=== PATIENT | female | born 1995 | race Caucasian/White ===

== ENCOUNTER 2018-02-22 13:51 | Inpatient (IN) | payer OTHER ==
[~2018-02-22] VITALS: Ht 170.2 cm; Wt 105.2 kg
--- NOTE | 2018-02-22 13:25 | NUR ---
RECEIVED REPORT FROM NEISHA BYNUM PT IS ON WAY TO [facility]. Addendum: 02/22/18 at 1502 by Jia Ly Meng, RN DAKOTA PALACIOS
[2018-02-22 13:40] VITALS: BP 120/71
--- NOTE | 2018-02-22 13:40 | NUR ---
ADMITTED PT TO THE UNIT. AMBULATORY WITHOUT ASSIST. SKIN INTACT. LUNGS CTA. HEART RHYTHM REGULAR. C/O TOLERABLE 5/10 RUQ PAIN RADIATING TO EPIGASTRIUM. DENIES NEED FOR PAIN MEDICATION AT THIS TIME. WILL CALL DR. YUSUF FOR ADMIT ORDERS. DENIES PMHX. DENIES ALLERGIES TO MEDICATION AND FOOD. IN STABLE CONDITION. VITALS STABLE. ALL SAFETY PRECAUTIONS IN PLACE, WILL CONTINUE TO MONITOR.
--- NOTE | 2018-02-22 14:08 | NUR ---
PAGED DR. YUSUF FOR ADMIT ORDERS AND PAIN MEDICATION ORDERS. PER DR. YUSUF, HE WILL ENTER IN THE ORDERS. NOTIFIED DR. YUSUF THAT DR. DANIEL IS HERE AND AVAILABLE FOR SURGICAL CONSULT.
[2018-02-22] MEDS ORDERED: ACETAMINOPHEN 325 MG TAB PO PRN (14:10)
[2018-02-22] MEDS ORDERED: ONDANSETRON 4 MG/2 ML VIAL IVP PRN (14:10)
[2018-02-22] MEDS ORDERED: MORPHINE SULFATE 4 MG/ML SYR IVP PRN (14:10)
[2018-02-22] MEDS ORDERED: HYDROcodone/APAP 5/325 MG 1 TAB TAB PO PRN (14:10)
[2018-02-22] MEDS: DEXT 5% / NACL 0.45% 1,000 ML IV SCH (14:20)
[2018-02-22 16:00] VITALS: BP 109/68
--- NOTE | 2018-02-22 16:04 | NUR ---
PT RESTING COMFORTABLY IN BED. STILL C/O 06/22 RUQ PAIN BUT REFUSED PAIN MEDICATION. Addendum: 02/22/18 at 1605 by Jia Ly Meng, RN STATES PAIN TOLERABLE.
--- NOTE | 2018-02-22 18:14 | NUR ---
PER DR. DANIEL, HE WANTS PT TO HAVE MRI ABD W/WO CONTRAST.
--- NOTE | 2018-02-22 18:26 | NUR ---
PT LEFT FOR CT ABDOMEN.
--- NOTE | 2018-02-22 19:25 | NUR ---
ENDORSED POC TO DESKTOP ANALYST RN. PT IN STABLE CONDITION. ENDORSED TO OBTAIN CONSENT FOR ERCP, AND CALL DR. HEWITT WHEN LAB RESULTS BACK.
--- NOTE | 2018-02-22 19:26 | NUR ---
RECD. RESTING IN BED, AWAKE, A/OX4. CONVERSING WITH SOMEBODY IN HER CELL PHONE. RESPIRATION EVEN AND UNLABORED. IV OF D51/2 NS AT 100 ML/HR INFUSING. PLAN OF CARE FOR THE SHIFT DISCUSSED. DENIES ABDOMINAL PAIN 0/10. WILL FOLLOW UP WITH LAB RESULTS.
--- NOTE | 2018-02-22 19:26 | NUR ---
Patient's Plan of Care was discussed and reviewed with SHERITA: MARTÍN
[2018-02-22 20:00] VITALS: BP 108/62
[2018-02-22 20:01] LABS: TOTAL BILIRUBIN 1.8 mg/dL (0.0-1.0)
[2018-02-22 20:02] LABS: ALBUMIN 3.4 g/dL (3.4-5.0); BILIRUBIN,DIRECT 0.5 mg/dL (0.0-0.3)
--- NOTE | 2018-02-22 21:00 | NUR ---
DR. DUMAS CALLED, INFORMED REGARDING HEPATIC PANEL RESULT, AND CT OF ABD/PELVIS. WILL NOT DO ERCP TOMORROW. PT WILL STILL BE NPO. INFORMED CHARGE NURSE FAIRY AND PATIENT REGARDING DR. DUMAS'S DECISION.
[2018-02-23] VITALS: BP 103/66
[2018-02-23] MEDS: DEXT 5% / NACL 0.45% 1,000 ML IV SCH ×3 (00:18→20:08)
[2018-02-23 06:02] LABS: BASOPHILS % (AUTO) 0.2 % (0.0-2.0); EOSINOPHILS # (AUTO) 0.2 K/uL (0-0.4); HEMATOCRIT 38.1 % (36-48); HEMOGLOBIN 12.6 g/dL (12.0-16.0); LYMPHOCYTES # (AUTO) 1.9 K/uL (2.5-16.5); LYMPHOCYTES % (AUTO) 23.5 % (20.5-51.1); MEAN CORPUSCULAR HEMOGLOBIN 29 pg (27-31); MEAN CORPUSCULAR HGB CONC 33 g/dL (33-37); MEAN CORPUSCULAR VOLUME 88.1 fL (80-94); MONOCYTES # (AUTO) 0.5 K/uL (0.8-1.0); MONOCYTES % (AUTO) 5.6 % (1.7-9.3); NEUTROPHILS # (AUTO) 5.7 K/uL (1.8-7.7); NEUTROPHILS % (AUTO) 68.7 % (42.2-75.2); PLATELET COUNT (AUTO) 181 K/uL (140-450); RED BLOOD CELL COUNT(AUTO) 4.33 MIL/uL (4.20-5.40); RED CELL DISTRIBUTION WIDTH 12.9 % (11.6-13.7); WHITE BLOOD COUNT (AUTO) 8.2 K/uL (4.8-10.8)
[2018-02-23 06:57] LABS: PROTHROMBIN TIME 10.8 secs (10.8-13.4)
[2018-02-23 07:15] LABS: ANION GAP 9.8 (8-16); CARBON DIOXIDE 29.9 mmol/L (21-32); CREATININE 0.9 mg/dL (0.6-1.3); POTASSIUM 3.7 mmol/L (3.5-5.1)
--- NOTE | 2018-02-23 07:25 | NUR ---
RECEIVED REPORT FROM AIDS COUNSELOR NURSE. PATIENT LYING DOWN IN BED SLEEPING, AROUSABLE BY VOICE. NO DISTRESS NOTED. DENIES ANY PAIN AT THIS TIME. DENIES ANY PAIN THROUGHOUT NIGHT. NO NAUSEA/VOMITING THROUGHOUT NIGHT. AAOX4, CALM, COOPERATIVE, SKIN COLOR APPROPRIATE TO ETHNICITY, WARM TO TOUCH. SKIN IS INTACT. ABDOMEN SOFT. IV SITE INTACT PATENT AND INFUSING IVF PER MD ORDERS. SAFETY MEASURES IN PLACE, CALL LIGHT WITHIN REACH. WILL CONTINUE TO MONITOR.
[2018-02-23 07:32] LABS: HEPATITIS A ANTIBODY IGM Negative (Negative); HEPATITIS B CORE AB TOTAL Negative (Negative); HEPATITIS B SURFACE ANTIBODY Reactive (.); HEPATITIS B SURFACE ANTIGEN Negative (Negative)
[2018-02-23 07:57] LABS: TOTAL BILIRUBIN 1.2 mg/dL (0.0-1.0)
[2018-02-23 08:00] VITALS: BP 113/68
[2018-02-23 08:00] LABS: ALBUMIN 3.2 g/dL (3.4-5.0)
--- NOTE | 2018-02-23 08:40 | NUR ---
PATIENT HAS BEEN SCREENED AND CATEGORIZED HIGH NUTRITION RISK. PATIENT WILL BE SEEN WITHIN 1-2 DAYS OF ADMISSION. 02/23/18-02/24/[address]
[2018-02-23] MEDS: PANTOPRAZOLE 40 MG INJ VIAL IVP SCH (09:50)
--- NOTE | 2018-02-23 09:54 | NUR ---
PATIENT SITTING IN BED TALKING WITH FAMILY MEMBERS AT BEDSIDE. NO DISTRESS NOTED. DENIES ANY PAIN. SCHEDULED MEDICATIONS DUE GIVEN. WILL CONTINUE TO MONITOR.
--- NOTE | 2018-02-23 10:44 | NUR ---
SPOKE WITH DR DANIEL UPDATED PATIENT STATUS AND NO NEED ERCP FROM DR HEWITT ,DR DANIEL SAID CANCELLED MRI PT CAN GO HOME AND FOLLOW UP WITH HIM WITH IN ONE WEEK. NOTIFIED DR YUSUF WELL.
--- NOTE | 2018-02-23 14:29 | NUR ---
02/23/18 RD INITIAL ASSESSMENT COMPLETED PLEASE REFER TO NUTRITION ASSESSMENT UNDER CARE ACTIVITY FOR ESTIMATED NUTRITIONAL NEEDS. 1. CONTINUE NPO MEDICALLY NECESSARY 2. IF/WHEN PATIENT IS MEDICALLY STABLE CONSIDER ADVANCING TO BLAND DIET, TOLERATED 3. RD PROVIDED NUTRITION EDUCATION ON GENERAL HEALTHY EATING. PT ACCEPTED 4. RD TO FOLLOW-UP 5-7 DAYS, LOW RISK JON DOSS RD
[2018-02-23 16:00] VITALS: BP 121/72
[2018-02-23] MEDS ORDERED: ENOXAPARIN 40 MG/0.4 ML SYR SUBQ SCH (17:00)
--- NOTE | 2018-02-23 17:34 | NUR ---
PATIENT SITTING IN BED TALKING WITH FAMILY MEMBERS AT BEDSIDE. DENIES ANY PAIN. SCHEDULED MEDICATIONS DUE GIVEN. WILL CONTINUE TO MONITOR.
[2018-02-23] MEDS: PIPER/TAZO 3.375GM/D5W PREMIX 50 ML IV SCH ×2 (17:52→23:53)
--- NOTE | 2018-02-23 19:30 | NUR ---
RECEIVED REPORT FROM DANIE DUNCAN DAYSHIFT NURSE AT BEDSIDE FOR CONTINUITY OF CARE, PT IN STABLE CONDITION. MOTHER AT BEDSIDE.
--- NOTE | 2018-02-23 20:00 | NUR ---
PT LYING IN BED NO C/O OF PAIN OR DISTRESS, V/S FOLLOWS T 97.3 P 70 R 18 B/P 143/67 02 95% ON R/A.
--- NOTE | 2018-02-23 22:00 | NUR ---
PT IN BED, RESTING, NO S/S OF PAIN OR DISTRESS NOTED. D5 AND 1/2 NS RUNNING AT 100MLS/HR. IV SITE ON LEFT HAND 22G INTACT, ASYMPTOMATIC AND FLUSHED PATENT. WILL CONTINUE TO MONITOR PT FOR PAIN AND ANY OTHER REQUEST. PT SAID THAT SHE WANTED TO TAKE A NAP. BED LOW AND CALL COLLINS IN REACH.
[2018-02-24] VITALS: BP 103/48
--- NOTE | 2018-02-24 | NUR ---
PT IN BED RESTING, BUT AROUSABLE TO NAME. MELI MADDEN ORDERED. MEDICATION AND DIET EDUCATION PROVIDED TO PT. PT DENIES PAIN AT THIS TIME. V/S FOLLOWS: T 98.0 P 72 R 18 B/P 103/48 02 97% ON R/A.BED IN LOW POSITION WITH SIDE RAILS UP X2 AND CALL COLLINS IN REACH.
--- NOTE | 2018-02-24 02:05 | NUR ---
PT SLEEPING SOUNDLY NO S/S OF PAIN OR DISTRESS NOTED. D5AND 1/2 NS RUNNING AT 100. IV SITE INTACT AND FLUSHED PATENET. BED LOW SIDE RAILS UP X2 AND CALL COLLINS IN REACH.
--- NOTE | 2018-02-24 04:26 | NUR ---
PT CONTINUE TO SLEEP SOUNDLY NO S/S OF PAIN OR DISTRESS NOTED BED LOW SIDE RAILS UP X2 AND CALL COLLINS IN REACH. PT FLUIDS CONTINUE WITH D5 AND 1/2 NS RUNNING AT 100MLS/HR.
--- NOTE | 2018-02-24 05:15 | NUR ---
MELI MADDEN ORDERED. PT ASLEEP NO S/S OF PAIN OR DISTRESS NOTED.
[2018-02-24] MEDS: PIPER/TAZO 3.375GM/D5W PREMIX 50 ML IV SCH (05:20)
[2018-02-24] MEDS: DEXT 5% / NACL 0.45% 1,000 ML IV SCH (05:21)
[2018-02-24 06:13] LABS: HEPATITIS A ANTIBODY IGM Negative (Negative); HEPATITIS B CORE AB TOTAL Negative (Negative); HEPATITIS B SURFACE ANTIBODY Reactive (.); HEPATITIS B SURFACE ANTIGEN Negative (Negative)
--- NOTE | 2018-02-24 07:22 | NUR ---
PT REPORTS GETTING HER MONTHLY MENSTRUATION TODAY. REPORT GIVEN TO DANIE DUNCAN DAYSHIFT NURSE, AT BEDSIDE, PT IN STABLE CONDITION.
--- NOTE | 2018-02-24 07:23 | NUR ---
RECEIVED REPORT FROM DYNAMIC ETCHING PROCESSOR NURSE. PATIENT LYING DOWN IN BED SLEEPING, AROUSABLE BY VOICE. NO DISTRESS NOTED. DENIES ANY PAIN AT THIS TIME. DENIES ANY PAIN THROUGHOUT NIGHT. NO NAUSEA/VOMITING THROUGHOUT NIGHT. AAOX4, CALM, COOPERATIVE, SKIN COLOR APPROPRIATE TO ETHNICITY, WARM TO TOUCH. SKIN IS INTACT. ABDOMEN SOFT. IV SITE INTACT PATENT AND INFUSING IVF PER MD ORDERS. SAFETY MEASURES IN PLACE, CALL LIGHT WITHIN REACH. WILL CONTINUE TO MONITOR.
[2018-02-24 07:34] LABS: BASOPHILS % (AUTO) 0.2 % (0.0-2.0); EOSINOPHILS # (AUTO) 0.2 K/uL (0-0.4); EOSINOPHILS % (AUTO) 2.1 % (0.0-4.0); HEMATOCRIT 39.7 % (36-48); HEMOGLOBIN 13.1 g/dL (12.0-16.0); LYMPHOCYTES # (AUTO) 2.3 K/uL (2.5-16.5); LYMPHOCYTES % (AUTO) 25.9 % (20.5-51.1); MEAN CORPUSCULAR HEMOGLOBIN 29 pg (27-31); MEAN CORPUSCULAR HGB CONC 33 g/dL (33-37); MEAN CORPUSCULAR VOLUME 87.6 fL (80-94); MONOCYTES # (AUTO) 0.6 K/uL (0.8-1.0); MONOCYTES % (AUTO) 6.4 % (1.7-9.3); NEUTROPHILS # (AUTO) 5.8 K/uL (1.8-7.7); NEUTROPHILS % (AUTO) 65.4 % (42.2-75.2); PLATELET COUNT (AUTO) 181 K/uL (140-450); RED BLOOD CELL COUNT(AUTO) 4.53 MIL/uL (4.20-5.40); RED CELL DISTRIBUTION WIDTH 12.6 % (11.6-13.7); WHITE BLOOD COUNT (AUTO) 8.9 K/uL (4.8-10.8)
[2018-02-24 08:00] VITALS: BP 115/64
[2018-02-24 08:39] LABS: ALBUMIN 3.2 g/dL (3.4-5.0); ANION GAP 9.8 (8-16); CARBON DIOXIDE 28.9 mmol/L (21-32); POTASSIUM 3.7 mmol/L (3.5-5.1); TOTAL BILIRUBIN 0.8 mg/dL (0.0-1.0)
[2018-02-24] MEDS ORDERED: AMOX-1000 PO (08:57)
[2018-02-24] MEDS: PANTOPRAZOLE 40 MG INJ VIAL IVP SCH (09:32)
--- NOTE | 2018-02-24 09:36 | NUR ---
PATIENT LYING DOWN IN BED TALKING TO MOTHER AT BEDSIDE. NO DISTRESS NOTED. DENIES ANY PAIN. SCHEDULED MEDICATIONS DUE GIVEN. WILL CONTINUE TO MONITOR.
--- NOTE | 2018-02-24 10:00 | NUR ---
DISCHARGE INSTRUCTIONS PROVIDED TO PATIENT/MOTHER AT BEDSIDE IN PREFERRED LANGUAGE OF PALESTINIAN. INSTRUCTIONS FOR FOLLOW-UP WITH DR. DANIEL, PCP, NEW MEDICATIONS, DIET REGIMEN AND DISEASE MANAGEMENT OF CHOLELITHIASIS. ANSWERED ALL OF PATIENT/MOTHER QUESTIONS REGARDING DISCHARGE. IV SITE REMOVED WITH MINIMAL BLOOD AND LUMEN COMPLETELY INTACT. ID BANDS REMOVED. AWAITING FOR PATIENT TO GET DRESSED.
--- NOTE | 2018-02-24 10:15 | NUR ---
PATIENT ALL DRESSED AND READY TO GO HOME. ESCORTED PATIENT DOWN TO LOBBY VIA STEADY AMBULATION. PATIENT DISCHARGED AT THIS TIME IN STABLE CONDITION.
== END 2018-02-24 10:15 | disposition home or self-care (01) ==
LOC: MTU 13:51
PROVIDERS: ADMIT Internal Medicine; ATTEND Internal Medicine
DX: K80.00 Calculus of gallbladder with acute cholecystitis without obstruction (principal); K85.10 Biliary acute pancreatitis without necrosis or infection; E66.9 Obesity, unspecified; Z68.36 Body mass index [BMI] 36.0-36.9, adult
CPT/HCPCS: 36415; 80053; 80076; 82150; 83690; 83735; 85025; 85610; 85730; 86704; 86706; 86708; 86709; 86803; 87081; 87340; C9113; J0696; J1650; J2543; J7060

== ENCOUNTER 2018-05-17 18:43 | Inpatient (IN) | payer OTHER ==
[~2018-05-17] VITALS: Ht 170.2 cm; Wt 105.7 kg
[~2018-05-17 18:43] MED LIST: AMOX-1000 PO
[2018-05-17 18:57] VITALS: BP 120/63
--- NOTE | 2018-05-17 19:02 | NUR ---
PT PROVIDED URINE; AMB TO LOBBY; NOT IN DISTRESS
--- NOTE | 2018-05-17 19:39 | NUR ---
PT AMBULATED TO ER BED 07
--- NOTE | 2018-05-17 19:40 | NUR ---
Note undone in EDM - 05/17/18 at 2012 by MARIBETH PT CAME INTO ER WITH C/O ABDOMINAL PAIN X 2 DAYS. PT STATED THAT SHE HAS HX OF GALL STONES. PT STATED THAT SHE IS GOING TO HAVE SURGERY SOON. PT STATED THAT HER URINE IS EL COLOR AND SHE HAS BEEN HAVING N/V X 2 DAYS. PT PAIN LEVEL IS 5/10 AT THIS TIME. ER MD MADE AWARE OF STATUS. SAFETY PRECAUTIONS IN PLACE, BED RAILS UP X 1.
--- NOTE | 2018-05-17 20:31 | NUR ---
ER AT PT BEDSIDE
--- NOTE | 2018-05-17 20:48 | NUR ---
LAB AT BEDSIDE
[2018-05-17 21:03] LABS: BASOPHILS # (AUTO) 0.1 K/uL (0.00-0.22); BASOPHILS % (AUTO) 0.5 % (0.0-2.0); EOSINOPHILS # (AUTO) 0.1 K/uL (0-0.4); EOSINOPHILS % (AUTO) 0.5 % (0.0-4.0); HEMATOCRIT 42.9 % (36-48); HEMOGLOBIN 14.7 g/dL (12.0-16.0); LYMPHOCYTES % (AUTO) 9.1 % (20.5-51.1); MEAN CORPUSCULAR HEMOGLOBIN 30 pg (27-31); MEAN CORPUSCULAR HGB CONC 34 g/dL (33-37); MEAN CORPUSCULAR VOLUME 87.5 fL (80-94); MONOCYTES # (AUTO) 0.5 K/uL (0.8-1.0); NEUTROPHILS # (AUTO) 9.3 K/uL (1.8-7.7); NEUTROPHILS % (AUTO) 84.9 % (42.2-75.2); PLATELET COUNT (AUTO) 244 K/uL (140-450); RED CELL DISTRIBUTION WIDTH 13.8 % (11.6-13.7)
[2018-05-17 21:24] LABS: ANION GAP 13.3 (8-16); CARBON DIOXIDE 28.8 mmol/L (21-32); CREATININE 0.9 mg/dL (0.6-1.3); POTASSIUM 4.1 mmol/L (3.5-5.1)
[2018-05-17 21:34] LABS: ALBUMIN 3.8 g/dL (3.4-5.0); TOTAL BILIRUBIN 4.6 mg/dL (0.0-1.0)
[2018-05-17] MEDS ORDERED: NACL 0.9% 1,000 ML IV ONE (22:00)
[2018-05-17] MEDS ORDERED: ONDANSETRON 4 MG/2 ML VIAL IVP ONE (22:00)
[2018-05-17] MEDS ORDERED: MORPHINE SULFATE 4 MG/ML SYR IVP ONE (22:00)
[2018-05-17] MEDS ORDERED: cefTRIAXone 1,000 MG VIAL ONE (22:19)
--- NOTE | 2018-05-17 23:13 | NUR ---
PT STATES HER PAIN LEVEL HAS DECREASED. PAIN LEVEL IS 3/10 AT THIS TIME. ER MD MADE AWARE.
[2018-05-17] MEDS ORDERED: MORPHINE SULFATE 4 MG/ML SYR IVP PRN (23:30)
[2018-05-17] MEDS ORDERED: ONDANSETRON 4 MG/2 ML VIAL IVP PRN (23:30)
[2018-05-17] MEDS ORDERED: MORPHINE SULFATE 2 MG/ML SYR IVP PRN (23:30)
[2018-05-17] MEDS ORDERED: ACETAMINOPHEN 325 MG TAB PO PRN (23:30)
--- NOTE | 2018-05-17 23:37 | NUR ---
PT BACK FROM CT
--- NOTE | 2018-05-18 00:10 | NUR ---
GAVE REPORT TO CHEIKH RN, PT VSS
--- NOTE | 2018-05-18 00:10 | NUR ---
Patient will be admitted to care of DR. HUGHES. Admited to MED SURG. Will go to room 119A. Belongings list completed. Report to ROBERT.
--- NOTE | 2018-05-18 00:18 | NUR ---
RECEIVED FROM ER PER WHEELCHAIR ACCOMPANIED BY MOTHER. ABLE TO VERBALIZE NEEDS WELL. DX. OF GALLSTONES AND PANCREATITIS UNDER MD ADAN CARE. CARE PLANS FOR THE NIGHT DISCUSSED WITH PT. ROM X 4. A/O X 4. CLEAR SPEECH. HONDURAN SPEAKING. AFEBRILE. CALL LIGHT WITH IN REACH. CTAB. NO EDEMA NOTED. SKIN INTACT. ORIENTED TO ROOM , BED AND RAPID RESPONSE.
[2018-05-18] MEDS: AMPICILLIN/SULBACTAM 3 GM in NACL 0.9% 100 ML IV SCH ×5 (00:52→22:10)
[2018-05-18] MEDS: DEXT 5% /NACL 0.9% 1,000 ML IV SCH ×3 (00:53→19:30)
[2018-05-18 00:54] VITALS: BP 120/63
[2018-05-18] MEDS ORDERED: AMPICILLIN/SULBACTAM 3 GM VIAL ONE ×2 (01:01→04:51)
--- NOTE | 2018-05-18 01:46 | NUR ---
pt. still awake at this time. no complaints done. encouraged to sleep.
--- NOTE | 2018-05-18 03:00 | NUR ---
PT. SLEEPING AT THIS TIME. A/O X 4. ROM X 4.
--- NOTE | 2018-05-18 03:20 | NUR ---
PT. ABLE TO WALK WELL INDEPENDENTLY. ABLE TO USE CALL LIGHT FOR HELP. A/O X 4.
--- NOTE | 2018-05-18 05:42 | NUR ---
PT. AWAKE AT THIS TIME. NO COMPLAINTS DONE. NPO.
--- NOTE | 2018-05-18 06:09 | NUR ---
AWAKE AT THIS T JOHN. ABLE TO VERBALIZE WELL. NO PAIN COMPLAINTS AT THIS TIME. WILL ENDORSE TO THE AM RN FOR CONTINUITY OF CARE.
[2018-05-18 06:38] LABS: ALBUMIN 3.1 g/dL (3.4-5.0); CARBON DIOXIDE 26.6 mmol/L (21-32); CREATININE 0.9 mg/dL (0.6-1.3); POTASSIUM 3.6 mmol/L (3.5-5.1); TOTAL BILIRUBIN 2.2 mg/dL (0.0-1.0)
[2018-05-18 06:46] LABS: MAGNESIUM 2.2 mg/dL (1.8-2.4); PHOSPHORUS 3.7 mg/dL (2.5-4.9)
[2018-05-18 06:56] LABS: BASOPHILS % (AUTO) 0.3 % (0.0-2.0); EOSINOPHILS # (AUTO) 0.2 K/uL (0-0.4); EOSINOPHILS % (AUTO) 1.8 % (0.0-4.0); HEMATOCRIT 38.7 % (36-48); HEMOGLOBIN 13.1 g/dL (12.0-16.0); LYMPHOCYTES # (AUTO) 2.2 K/uL (2.5-16.5); LYMPHOCYTES % (AUTO) 23.4 % (20.5-51.1); MEAN CORPUSCULAR HEMOGLOBIN 30 pg (27-31); MEAN CORPUSCULAR HGB CONC 34 g/dL (33-37); MEAN CORPUSCULAR VOLUME 88.5 fL (80-94); MONOCYTES # (AUTO) 0.6 K/uL (0.8-1.0); MONOCYTES % (AUTO) 6.7 % (1.7-9.3); NEUTROPHILS # (AUTO) 6.3 K/uL (1.8-7.7); NEUTROPHILS % (AUTO) 67.8 % (42.2-75.2); PLATELET COUNT (AUTO) 228 K/uL (140-450); RED BLOOD CELL COUNT(AUTO) 4.37 MIL/uL (4.20-5.40); RED CELL DISTRIBUTION WIDTH 13.8 % (11.6-13.7); WHITE BLOOD COUNT (AUTO) 9.4 K/uL (4.8-10.8)
--- NOTE | 2018-05-18 07:20 | NUR ---
RECEIVED BEDSIDE REPORT FROM DAKOTA JONES. PT STABLE, AWAKE, AND ALERT AND ORIENTED X4. NO SIGNS OF DISTRESS NOTED. DENIES PAIN OR SOB. NO REDNESS, SWELLING, OR INFLAMMATION NOTED ON IV SITE. CALL COLLINS WITHIN REACH. BED IN LOWEST POSITION. BED ALARM ON. SAFETY MEASURES IN PLACE. PLAN OF CARE REVIEWED.
--- NOTE | 2018-05-18 07:50 | NUR ---
SPOKE WITH DR MONTOYA REGARDING PLAN OF CARE.
[2018-05-18 08:00] VITALS: BP 108/52
--- NOTE | 2018-05-18 08:14 | NUR ---
PATIENT HAS BEEN SCREENED AND CATEGORIZED MODERATE NUTRITION RISK. PATIENT WILL BE SEEN WITHIN 3-5 DAYS OF ADMISSION. 05/20/18JON DOSS RD
--- NOTE | 2018-05-18 10:30 | NUR ---
PT STABLE, NO SIGNS OF DISTRESS NOTED.
--- NOTE | 2018-05-18 12:10 | NUR ---
PT AMBULATED TO THE BATHROOM WITH STEADY GAIT.
[2018-05-18] MEDS ORDERED: PROPOFOL 200 MG/20 ML VIAL IV ONE (14:00)
--- NOTE | 2018-05-18 14:00 | NUR ---
PT TAKEN TO THE OR FOR ERCP.
[2018-05-18] MEDS ORDERED: MIDAZOLAM 2 MG/2 ML VIAL ONE (14:15)
[2018-05-18] MEDS ORDERED: fentaNYL 0.05 MG/ML VIAL ONE (14:15)
[2018-05-18] MEDS ORDERED: LACTATED RINGERS 1,000 ML IV SCH (15:08)
[2018-05-18] MEDS ORDERED: ONDANSETRON 4 MG/2 ML VIAL IVP PRN (15:10)
--- NOTE | 2018-05-18 15:14 | NUR ---
CM NOTE I SPOKE WITH [facility] # [phone] IN AN ATTEMPT TO MAKE THE PATIENT'S OUTPATIENT FOLLOW UP APPOINTMENT WITH DR. GRACE ADAMES. PER [facility], THEY DO NOT MAKE APPOINTMENTS AND THEY ONLY DO WALK-IN. [facility] SAID THAT THEIR CLINIC SCHEDULE IS MONDAYS-FRIDAYS 8:00AM-8:00PM, SATURDAYS 8:30AM-5:00PM, SUNDAYS 9:00AM-4:00PM, CLINIC ADDRESS AT [address] [place], [place] [phone]. I SPOKE WITH THE PATIENT AND EMPHASIZED TO HER THE IMPORTANCE OF OUTPATIENT FOLLOW UP AND THE PATIENT VERBALIZED UNDERSTANDING. I GAVE THE PATIENT THE INFORMATION REGARDING HER PCP'S (DR. Joann ADAMES) CLINIC SCHEDULE, CLINIC ADDRESS AND PHONE NUMBER.
--- NOTE | 2018-05-18 15:30 | NUR ---
PT BACK FROM OR. VITAL SIGNS STABLE.
--- NOTE | 2018-05-18 15:53 | NUR ---
ADMINISTERED SCHEDULED MEDICATIONS. PT TOLERATED WELL.
[2018-05-18 16:00] VITALS: BP 116/67
--- NOTE | 2018-05-18 16:00 | NUR ---
PATIENT LYING DOWN IN BED. NO DISTRESS NOTED. DENIES ANY PAIN. SCHEDULED MEDICATIONS DUE GIVEN. WILL CONTINUE TO MONITOR.
--- NOTE | 2018-05-18 17:00 | NUR ---
FAMILY AT THE BEDSIDE.
--- NOTE | 2018-05-18 19:20 | NUR ---
ENDORSED PT TO RN ROBERT FOR CONTINUITY OF CARE. PT STABLE.
--- NOTE | 2018-05-18 19:28 | NUR ---
RECEIVED FROM AM RN IN BED AWAKE AND ALERT. NOTED ABLE TO MOVE LEFT ARM. MOUTHS WORDS TO CONVEY SIMPLE NEEDS. BED ALARM ON AND ON WOUND CARE BED. OAKES CATHETER IN PLACE AND DRAINING WELL WITH YELLOW URINE. WITH OSTOMY TO BAG . PICC LINE DOUBLE LUMEN INTACT . WITH GT FEEDING AT 50 ML PER HOUR. NO RESIDUAL NOTED AT THIS TIME. CARE PLANS FOR THE NIGHT EXPLAINED TO HER. NEEDS WILL BE ANTICIPATED AND MET. TELEMETRY MONITORING. Addendum: 05/18/18 at 1932 by Mei Motley RN ABOVE CHARTING WRONG PT.
--- NOTE | 2018-05-18 19:34 | NUR ---
RECEIVED FROM AM RN IN BED WITH MOTHER AT BEDSIDE. NO COMPLAINTS OF ANY PAIN AT THIS TIME. CALL LIGHT WITH IN REACH. CARE PLANS FOR THE NIGHT DISCUSSED WITH HER. IVF SITE TO RAC INTACT AND NO INFILTRATION. ABLE TO VERBALIZE NEEDS WELL. PT. DX. GALLSTONES/PANCREATITIS. ERCP DONE BY MD DUMAS TODAY. ENCOURAGED TO CALL FOR ANY HELP SHE MAY NEED. ROM X 4.
--- NOTE | 2018-05-18 21:43 | NUR ---
CONSENT FOR LAP PAUL TOMORROW BY CORBY COPPOLA / SURGEON SIGNED BY PATIENT. AWAKE AND ALERT. ORIENTED X 4. PRESENTLY AWAKE AND WATCHING SOMETHING IN HER CELL PHONE. CALL LIGHT WITH IN REACH. DENIES ANY PAIN AT THIS TIME. ENCOURAGED TO CALL FOR ANY HELP SHE MAY NEED OR IF IN PAIN.
--- NOTE | 2018-05-18 22:27 | NUR ---
PT. ENDORSED TO ANOTHER RN FOR CONTINUITY OF CARE. SLEEPING AT THIS TIME. PROVIDED WITH WARM BLANKET REQUESTED. DENIES PAIN AT THIS TIME.
--- NOTE | 2018-05-18 22:28 | NUR ---
RECEIVED REPORT FROM PENSION MANAGER NURSE ROBERT-RN. PT SLEEPING IN BED. ACCORDING TO NURSE AOX4, ON ROOM AIR WITH RIGHT AC #20G. BED IN LOWEST POSITION, BED BREAKS ON AND BOTH SIDE RAILS UP. BEDSIDE TABLE AND CALL LIGHT ARE WITHIN REACH. WILL CONTINUE TO MONITOR.
[2018-05-19] VITALS: BP 108/55
--- NOTE | 2018-05-19 | NUR ---
VITAL SIGNS TAKEN AND TOLERATED WELL. NO S/S OF RESPIRATORY DISTRESS OR DISCOMFORT NOTED AT THIS TIME. WILL CONTINUE TO MONITOR.
--- NOTE | 2018-05-19 02:00 | NUR ---
PT SLEEPING AT THIS TIME. NO S/S OF RESPIRATORY DISTRESS OR DISCOMFORT NOTED AT THIS TIME. WILL CONTINUE TO MONITOR.
[2018-05-19] MEDS: AMPICILLIN/SULBACTAM 3 GM in NACL 0.9% 100 ML IV SCH ×4 (03:39→21:30)
--- NOTE | 2018-05-19 03:39 | NUR ---
SCHEDULED MEDICATION UNASYN GIVEN AND TOLERATED WELL. NO S/S OF RESPIRATORY DISTRESS OR DISCOMFORT NOTED AT THIS TIME. WILL CONTINUE TO MONITOR.
[2018-05-19] MEDS: DEXT 5% /NACL 0.9% 1,000 ML IV SCH ×2 (05:09→16:58)
--- NOTE | 2018-05-19 06:00 | NUR ---
PT RESTING IN BED. NO S/S OF RESPIRATORY DISTRESS OR DISCOMFORT NOTED AT THIS TIME. WILL CONTINUE TO MONITOR.
--- NOTE | 2018-05-19 07:14 | NUR ---
ENDORSED PT CARE TO DAY SHIFT NURSE NIEVES LEONARDO FOR CONTINUITY OF CARE.
--- NOTE | 2018-05-19 07:15 | NUR ---
RECEIVED BEDSIDE REPORT FROM DAKOTA WHIPPLE. PT STABLE, SLEEPING, BUT EASILY AROUSABLE. NO SIGNS OF DISTRESS NOTED. DENIES PAIN OR SOB. NO REDNESS, SWELLING, OR INFLAMMATION NOTED ON IV SITE. CALL COLLINS WITHIN REACH. BED IN LOWEST POSITION. SAFETY MEASURES IN PLACE. PLAN OF CARE REVIEWED.
[2018-05-19 07:38] LABS: BASOPHILS % (AUTO) 0.4 % (0.0-2.0); EOSINOPHILS # (AUTO) 0.1 K/uL (0-0.4); EOSINOPHILS % (AUTO) 1.5 % (0.0-4.0); HEMATOCRIT 39.2 % (36-48); HEMOGLOBIN 13.3 g/dL (12.0-16.0); LYMPHOCYTES # (AUTO) 1.7 K/uL (2.5-16.5); MEAN CORPUSCULAR HEMOGLOBIN 30 pg (27-31); MEAN CORPUSCULAR HGB CONC 34 g/dL (33-37); MEAN CORPUSCULAR VOLUME 87.6 fL (80-94); MONOCYTES # (AUTO) 0.5 K/uL (0.8-1.0); MONOCYTES % (AUTO) 5.7 % (1.7-9.3); NEUTROPHILS # (AUTO) 6.2 K/uL (1.8-7.7); NEUTROPHILS % (AUTO) 72.4 % (42.2-75.2); PLATELET COUNT (AUTO) 196 K/uL (140-450); RED BLOOD CELL COUNT(AUTO) 4.47 MIL/uL (4.20-5.40); RED CELL DISTRIBUTION WIDTH 13.5 % (11.6-13.7); WHITE BLOOD COUNT (AUTO) 8.6 K/uL (4.8-10.8)
[2018-05-19 07:47] LABS: MAGNESIUM 1.9 mg/dL (1.8-2.4); PHOSPHORUS 2.9 mg/dL (2.5-4.9)
[2018-05-19 08:00] VITALS: BP 118/67
[2018-05-19 10:07] LABS: CARBON DIOXIDE 27.9 mmol/L (21-32); CREATININE 0.8 mg/dL (0.6-1.3); POTASSIUM 3.9 mmol/L (3.5-5.1)
[2018-05-19 10:12] LABS: ALBUMIN 3.1 g/dL (3.4-5.0); TOTAL BILIRUBIN 1.4 mg/dL (0.0-1.0)
--- NOTE | 2018-05-19 10:22 | NUR ---
ADMINISTERED SCHEDULED MEDICATION, PT TOLERATED WELL. FAMILY AT THE BEDSIDE.
--- NOTE | 2018-05-19 11:10 | NUR ---
PT SHOWERED, LINENS AND GOWN CHANGED. FAMILY AT THE BEDSIDE.
--- NOTE | 2018-05-19 13:10 | NUR ---
FAMILY AT THE BEDSIDE. NO OTHER NEEDS AT THIS TIME.
[2018-05-19] MEDS ORDERED: SUCCINYLCHOLINE CHLORIDE 200 MG/10 ML VIAL IVP ONE (14:00)
[2018-05-19] MEDS ORDERED: DEXAMETHASONE 4 MG/ML VIAL ONE (14:00)
[2018-05-19] MEDS ORDERED: SEVOFLURANE 250 ML BTL INH ONE (14:00)
[2018-05-19] MEDS ORDERED: ONDANSETRON 4 MG/2 ML VIAL ONE (14:00)
[2018-05-19] MEDS ORDERED: ROCURONIUM 50 MG/5 ML VIAL IV ONE (14:00)
[2018-05-19] MEDS ORDERED: PROPOFOL 200 MG/20 ML VIAL IV ONE (14:00)
[2018-05-19] MEDS ORDERED: KETOROLAC 30 MG/ML VIAL ONE (14:00)
--- NOTE | 2018-05-19 14:00 | NUR ---
PT TAKEN TO THE OR. CONSENT FOR PROCEDURE SIGNED. FAMILY TOOK ALL PT'S BELONGINGS HOME.
[2018-05-19] MEDS ORDERED: BUPIVACAINE-MPF 0.25% 30 ML VIAL INJ ONE (14:13)
[2018-05-19] MEDS ORDERED: fentaNYL 0.05 MG/ML VIAL ONE (14:17)
[2018-05-19] MEDS ORDERED: MEPERIDINE 50 MG/ML SYR ONE (14:17)
[2018-05-19] MEDS ORDERED: MIDAZOLAM 2 MG/2 ML VIAL ONE (14:17)
[2018-05-19] MEDS ORDERED: LACTATED RINGERS 1,000 ML IV SCH (14:48)
[2018-05-19] MEDS ORDERED: ONDANSETRON 4 MG/2 ML VIAL IVP PRN (14:50)
[2018-05-19] MEDS ORDERED: diphenhydrAMINE 50 MG/ML VIAL IVP PRN (14:50)
[2018-05-19] MEDS ORDERED: MEPERIDINE 25 MG/ML SYR IVP PRN (14:50)
[2018-05-19 16:00] VITALS: BP 118/65
[2018-05-19] MEDS: HYDROmorphone 1 MG/ML AMP IVP PRN ×4 (16:00→16:30)
[2018-05-19] MEDS ORDERED: HYDROmorphone PFS 2 MG/ML SYR ONE (16:16)
[2018-05-19] MEDS ORDERED: MEPERIDINE 25 MG/ML SYR ONE (16:35)
--- NOTE | 2018-05-19 16:50 | NUR ---
PT RETURNED FROM OR. PT STABLE, VITAL SIGNS TAKEN. PT SLEEPING, BUT EASILY AROUSABLE. FAMILY AT THE BEDSIDE.
--- NOTE | 2018-05-19 17:00 | NUR ---
ADMINISTERED SCHEDULED MEDICATIONS, PT TOLERATED WELL.
--- NOTE | 2018-05-19 18:10 | NUR ---
PT STABLE, SLEEPING, BUT EASILY AROUSABLE. FAMILY AT THE BEDSIDE. NO NEEDS AT THIS MOMENT.
--- NOTE | 2018-05-19 19:05 | NUR ---
ENDORSED PT TO DAKOTA WHIPPLE FOR CONTINUITY OF CARE. PT STABLE.
--- NOTE | 2018-05-19 19:06 | NUR ---
RECEIVED REPORT FROM DAY SHIFT NURSE NIEVES LEONARDO AT BEDSIDE. FAMILY AT BEDSIDE, PT AOX4, ON ROOM AIR WITH RIGHT AC #20G RUNNING D5% NS 0.9% @100ML/HR. S/P LAPAROSCOPIC CHOLECYSTECTOMY WITH X4 INCISIONS CLOSED WITH MARIS COVERED IN DRESSING NOT TO BE DISTURBED UNTIL FIRST SURGICAL DRESSING CHANGE BY SURGEON. PT SLEEPING AT THIS TIME. NO S/S OF RESPIRATORY DISTRESS OR DISCOMFORT NOTED AT THIS TIME. BED IN LOWEST POSITION, BED BREAKS ON, BOTH SIDE RAILS UP. BEDSIDE TABLE AND CALL LIGHT ARE WITHIN REACH. WILL CONTINUE TO MONITOR.
[2018-05-19 20:00] VITALS: BP 109/56
--- NOTE | 2018-05-19 20:00 | NUR ---
VITAL SIGNS TAKEN AND TOLERATED WELL. DISCUSSED PLAN OF CARE AND PT VERBALIZED UNDERSTANDING. NO S/S OF RESPIRATORY DISTRESS OR DISCOMFORT NOTED AT THIS TIME. WILL CONTINUE TO MONITOR.
--- NOTE | 2018-05-19 21:30 | NUR ---
SCHEDULED MEDICATION UNASYN GIVEN AND TOLERATED WELL. NO S/S OF RESPIRATORY DISTRESS OR DISCOMFORT NOTED AT THIS TIME. WILL CONTINUE TO MONITOR.
--- NOTE | 2018-05-19 23:00 | NUR ---
PT SLEEPING IN BED. NO S/S OF RESPIRATORY DISTRESS OR DISCOMFORT NOTED AT THIS TIME. WILL CONTINUE TO MONITOR.
[2018-05-20] VITALS: BP 108/57
--- NOTE | 2018-05-20 | NUR ---
VITAL SIGNS TAKEN AND TOLERATED WELL. NO S/S OF RESPIRATORY DISTRESS OR DISCOMFORT NOTED AT THIS TIME. WILL CONTINUE TO MONITOR.
[2018-05-20] MEDS: DEXT 5% /NACL 0.9% 1,000 ML IV SCH (00:52)
--- NOTE | 2018-05-20 02:00 | NUR ---
PT CONTINUES TO SLEEP IN BED. NO S/S OF RESPIRATORY DISTRESS OR DISCOMFORT NOTED AT THIS TIME. WILL CONTINUE TO MONITOR.
[2018-05-20] MEDS: AMPICILLIN/SULBACTAM 3 GM in NACL 0.9% 100 ML IV SCH ×2 (03:11→09:54)
--- NOTE | 2018-05-20 03:11 | NUR ---
SCHEDULED MEDICATION UNASYN GIVEN AND TOLERATED WELL. ASSISTED PT WITH BED LINEN CHANGE AFTER PT DISCOVERED THE BEGINNING OF THER MENSTRUAL CYCLE HAD SOILED THE BEDSHEETS. PROVIDED UNDERWEAR AND PADS. PT TOLERATED WELL WALKING TO THE BATHROOM. PT STATED SHE FELT DIZZY ONCE BACK IN BED. NO S/S OF RESPIRATORY DISTRESS OR DISCOMFORT NOTED AT THIS TIME. WILL CONTINUE TO MONITOR.
--- NOTE | 2018-05-20 04:00 | NUR ---
PT SLEEPING IN BED. NO S/S OF RESPIRATORY DISTRESS OR DISCOMFORT NOTED AT THIS TIME. WILL CONTINUE TO MONITOR.
--- NOTE | 2018-05-20 06:00 | NUR ---
PT RESTING IN BED. NO S/S OF RESPIRATORY DISTRESS OR DISCOMFORT NOTED AT THIS TIME. WILL CONTINUE TO MONITOR.
--- NOTE | 2018-05-20 07:04 | NUR ---
ENDORSED PT CARE TO DAY SHIFT NURSE MEKHI FOR CONTINUITY OF CARE.
--- NOTE | 2018-05-20 07:30 | NUR ---
RECEIVED PT ON BED AAOX4. NO SOB NOTED. NO C/O PAIN AT THIS TIME. IV TO RAC PATENT AND INTACT. CHEST CLEAR. ABDOMEN SOFT, BOWEL SOUNDS PRESENT. WITH 4 SMALL ABDOMINAL INCISIONS S/P LAP PAUL 05/19/2018, BANDAID DRESSINGS DRY AND INTACT. INSTRUCTED PT TO CALL FOR ASSISTANCE. CALL LIGHT WITHIN REACH, PT VERBALIZED UNDERSTANDING.
[2018-05-20 07:48] VITALS: BP 121/68
[2018-05-20 07:58] LABS: BASOPHILS % (AUTO) 0.2 % (0.0-2.0); EOSINOPHILS % (AUTO) 0.2 % (0.0-4.0); HEMATOCRIT 37.4 % (36-48); HEMOGLOBIN 12.8 g/dL (12.0-16.0); LYMPHOCYTES # (AUTO) 1.3 K/uL (2.5-16.5); LYMPHOCYTES % (AUTO) 12.8 % (20.5-51.1); MEAN CORPUSCULAR HEMOGLOBIN 30 pg (27-31); MEAN CORPUSCULAR HGB CONC 34 g/dL (33-37); MEAN CORPUSCULAR VOLUME 86.8 fL (80-94); MONOCYTES # (AUTO) 0.6 K/uL (0.8-1.0); MONOCYTES % (AUTO) 5.8 % (1.7-9.3); NEUTROPHILS # (AUTO) 8.3 K/uL (1.8-7.7); PLATELET COUNT (AUTO) 209 K/uL (140-450); RED CELL DISTRIBUTION WIDTH 13.1 % (11.6-13.7); WHITE BLOOD COUNT (AUTO) 10.3 K/uL (4.8-10.8)
--- NOTE | 2018-05-20 08:00 | NUR ---
pt ambulatory to the bathroom, voided freely. independent with steady gait.
[2018-05-20 08:25] LABS: ANION GAP 14.4 (8-16); CARBON DIOXIDE 25.5 mmol/L (21-32); CREATININE 0.8 mg/dL (0.6-1.3); POTASSIUM 3.9 mmol/L (3.5-5.1); TOTAL BILIRUBIN 0.9 mg/dL (0.0-1.0)
[2018-05-20 08:27] LABS: MAGNESIUM 1.9 mg/dL (1.8-2.4); PHOSPHORUS 3.1 mg/dL (2.5-4.9)
--- NOTE | 2018-05-20 08:45 | NUR ---
PT TOLERATED 45% of breakfast served. no n&v noted.
[2018-05-20 09:29] LABS: ANION GAP 12.2 (8-16); CARBON DIOXIDE 27.3 mmol/L (21-32); CREATININE 0.9 mg/dL (0.6-1.3); POTASSIUM 3.5 mmol/L (3.5-5.1); TOTAL BILIRUBIN 0.9 mg/dL (0.0-1.0)
--- NOTE | 2018-05-20 10:00 | NUR ---
PT SEEN BY DR. WITT WITH NEW ORDERS.
--- NOTE | 2018-05-20 11:00 | NUR ---
discharge photos taken and documented.
[2018-05-20] MEDS ORDERED: HYDROcodone/APAP 5/325 MG 1 TAB TAB PO PRN (11:05)
--- NOTE | 2018-05-20 11:15 | NUR ---
pt c/o post-op pain 7/10 on the pain scale. medicated pt with [place] po as ordered prn. will continue to monitor.
--- NOTE | 2018-05-20 11:35 | NUR ---
pt c/o nausea. medicated with zofran ivp as ordered prn. will continue to monitor pt.
[2018-05-20] MEDS ORDERED: HYDR-5122 PO (12:05)
--- NOTE | 2018-05-20 12:30 | NUR ---
pt able to tolerated 50% of lunch. no complaints made.
--- NOTE | 2018-05-20 12:35 | NUR ---
pt ambulating in the hallway couple times, activity tolerated well.
--- NOTE | 2018-05-20 12:45 | NUR ---
discharge instructions and prescriptions given to pt which verbalized full understanding of the teachings and instructions and the need to follow up with Dr. Salas. armbands and iv removed, cannula tip intact.
--- NOTE | 2018-05-20 13:00 | NUR ---
pt wheeled out to the front lobby. no c/o pain. pt is d/c home in stable condition with mother.
== END 2018-05-20 13:00 | disposition home or self-care (01) | DRG 263 ==
LOC: MED 18:43 → MTU 23:29
PROVIDERS: ADMIT Internal Medicine; ATTEND Internal Medicine
PROC: BF141ZZ Fluoroscopy of Gallbladder, Bile Ducts and Pancreatic Ducts using Low Osmolar Contrast (ICD-10-PCS; 2018-05-18)
PROC: 0FC98ZZ Extirpation of Matter from Common Bile Duct, Via Natural or Artificial Opening Endoscopic (ICD-10-PCS; principal; 2018-05-18 14:00)
PROC: 0FT44ZZ Resection of Gallbladder, Percutaneous Endoscopic Approach (ICD-10-PCS; 2018-05-19)
DX: K85.10 Biliary acute pancreatitis without necrosis or infection (principal); E66.01 Morbid (severe) obesity due to excess calories; K80.64 Calculus of gallbladder and bile duct with chronic cholecystitis without obstruction; Z79.899 Other long term (current) drug therapy; Z68.36 Body mass index [BMI] 36.0-36.9, adult
CPT/HCPCS: 36415; 74330; 76705; 80053; 82374; 83605; 83690; 83735; 84100; 85025; 86886; 86900; 86901; 87040; 87081; 88304; 99285; C1727; C1769; J0295; J0330; J0696; J1100; J1170; J1885; J2175; J2250; J2270; J2405; J2704; J3010; J3490; J7030; J7042; J7120; Q0092